=== PATIENT | male | born 1990 | race Two or more races ===

== ENCOUNTER 2017-11-22 04:01 | Emergency (ER) | payer OTHER ==
[2017-11-22 04:06] VITALS: RESP 16; TEMP 99; O2SAT 94
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
[2017-11-22] MEDS ORDERED: SKIN ADHESIVE (DERMABOND) 1 EACH TP ONE (04:21)
[2017-11-22 05:44] VITALS: BP 126/79; PULSE 88
== END 2017-11-22 05:43 | disposition home or self-care (01) ==
PROC: 08QNXZZ Repair Right Upper Eyelid, External Approach (ICD-10-PCS; principal; 2017-11-22)
DX: S42.002A Fracture of unspecified part of left clavicle, initial encounter for closed fracture (principal); S01.111A Laceration without foreign body of right eyelid and periocular area, initial encounter; F10.129 Alcohol abuse with intoxication, unspecified; F17.200 Nicotine dependence, unspecified, uncomplicated; V47.0XXA Car driver injured in collision with fixed or stationary object in nontraffic accident, initial encounter; Y92.410 Unspecified street and highway as the place of occurrence of the external cause; Y99.8 Other external cause status; Y93.89 Activity, other specified
CPT/HCPCS: A4565

== ENCOUNTER 2019-03-05 00:25 | Emergency (ER) | payer OTHER ==
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
[2019-03-05] MEDS ORDERED: HALOPERIDOL LACT 5 MG/ML INJ IM ONE (01:48)
[2019-03-05 06:43] VITALS: BP 122/77
== END 2019-03-05 07:11 | disposition home or self-care (01) ==
LOC: EDUNIT#
DX: F10.920 Alcohol use, unspecified with intoxication, uncomplicated (principal)
CPT/HCPCS: J1630